=== PATIENT | female | born 1970 | race Caucasian/White ===

== ENCOUNTER 2020-08-27 07:32 | Day surgery (SDC) | payer BC ==
[2020-08-26 14:39] VITALS: BMI 29.5
[2020-08-27] MEDS ORDERED: MIDAZOLAM HCL 2 MG/2 ML SINGLE DOSE VIAL ONE ×3 (08:55→09:57)
[2020-08-27] MEDS ORDERED: ROPIVACAINE HCL 0.5% 30ML VIAL ONE (08:55)
[2020-08-27] MEDS ORDERED: ceFAZolin SODIUM 1 GM VIAL ONE (09:47)
[2020-08-27] MEDS ORDERED: ONDANSETRON 4 MG/2 ML VIAL ONE (09:47)
[2020-08-27] MEDS ORDERED: DEXAMETHASONE SOD PHOSPHATE 4 MG/1 ML VIAL ONE ×2 (09:47→09:49)
[2020-08-27] MEDS ORDERED: oxyCODONE HCL 5 MG TABLET PO PRN ×2 (09:53)
[2020-08-27] MEDS ORDERED: ONDANSETRON 4 MG/2 ML VIAL IVPUSH PRN (09:53)
[2020-08-27] MEDS ORDERED: KETAMINE HCL 200 MG/20 ML VIAL ONE (09:58)
[2020-08-27] MEDS ORDERED: LACTATED RINGERS SOLUTION 1,000 ML IV SCH (10:00)
[2020-08-27] MEDS ORDERED: hydrALAZINE HCL 20 MG/ML VIAL ONE ×2 (10:04)
[2020-08-27] MEDS ORDERED: DESFLURANE GAS 240 ML BOTTLE IH ONE (10:23)
[2020-08-27 10:51] VITALS: TEMP 97.8
[2020-08-27 11:15] VITALS: BP 100/61; PULSE 69
== END 2020-08-27 11:50 | disposition home or self-care (01) ==
LOC: FASU 07:32
PROVIDERS: ATTEND Orthopaedic Surgery
PROC: 0RNJ4ZZ Release Right Shoulder Joint, Percutaneous Endoscopic Approach (ICD-10-PCS; 2020-08-27)
PROC: 0RBJ4ZZ Excision of Right Shoulder Joint, Percutaneous Endoscopic Approach (ICD-10-PCS; 2020-08-27)
PROC: 0PB94ZZ Excision of Right Clavicle, Percutaneous Endoscopic Approach (ICD-10-PCS; 2020-08-27)
PROC: 0RNJ4ZZ Release Right Shoulder Joint, Percutaneous Endoscopic Approach (ICD-10-PCS; principal; 2020-08-27 10:01)
PROC: 0MM14ZZ Reattachment of Right Shoulder Bursa and Ligament, Percutaneous Endoscopic Approach (ICD-10-PCS; 2020-08-27 10:01)
DX: M24.811 Other specific joint derangements of right shoulder, not elsewhere classified (principal); M75.01 Adhesive capsulitis of right shoulder; M75.41 Impingement syndrome of right shoulder; M19.011 Primary osteoarthritis, right shoulder; M65.811 Other synovitis and tenosynovitis, right shoulder; S46.211A Strain of muscle, fascia and tendon of other parts of biceps, right arm, initial encounter; S43.431A Superior glenoid labrum lesion of right shoulder, initial encounter; X58.XXXA Exposure to other specified factors, initial encounter; Y93.9 Activity, unspecified; Y92.9 Unspecified place or not applicable
CPT/HCPCS: 29823; 29824; 29825; C1713; 84703; 88304-TC